=== PATIENT | female | born 1995 | race Caucasian/White ===

== ENCOUNTER → 2020-07-27 17:23 | Outpatient (BNVA) | payer SELFPAY | PROVIDERS: Family Provider Nurse Practitioner Family; PCP Nurse Practitioner Family; Visit Provider Family Medicine Adult Medicine | DX: R30.0 Dysuria (principal); R30.1 Vesical tenesmus | CPT/HCPCS: 81000 ==

== ENCOUNTER 2020-09-02 14:00 | Emergency (ER) | payer SELFPAY ==
[2020-09-02 14:38] VITALS: BP 114/73; PULSE 78; RESP 16; TEMP 36.9; O2SAT 98; BMI 25.0
--- NOTE | 2020-09-02 14:47 | XR_ITS ---
WS: [id number] Right knee, AP and lateral views, 09/02/2020 Clinical Data: injury Comparison: None. Findings: No fractures or dislocations are seen. The joint spaces are normal. The patella is intact. The soft t issues are unremarkable. XR/XR knee RT 1-2V 70601 Impression: Negative right knee.
--- NOTE | 2020-09-02 16:05 | ED_ITS ---
HPI - Extremity Problem General: Chief complaint: Extremity Injury, Lower Stated complaint: Right Knee Injury Time Seen by Provider: 09/02/20 14:48 Source: patient Mode of arrival: ambulatory Limitations: no limitations History of Present Illness: MD Complaint: joint pain Onset (ago): hour(s) (2) Pain Consistency: constant Location: right and knee Quality: aching and sharp Radiation: none Relieving factors: immobilization and elevation Exacerbating factors: range of motion Associated symptoms: Reports no associated symptoms; Deny chest pain, fever(s) or rash Review of Systems Const: Denies: fever(s), chills or body aches Card: Denies: chest pain, irregular heart rhythm, swelling of feet/ankles, lightheadedness, syncope or dyspnea on exertion Resp: Denies: dyspnea, productive cough, non-productive cough or wheezing GI: Denies: abdominal pain, nausea or vomiting : Denies: flank pain, difficulty voiding or dysuria Musc: Reports: joint pain Skin/Breast: Denies: rash Neuro: Denies: headache(s) or numbness in extremities Psych: Denies: anxiety, suicidal ideation or homicidal ideation PFS ED PFSH: Medical History Dysuria Endometriosis Painful bladder spasm Social History Smoking and tobacco status: current every day smoker cigarettes Packs smoked per day: 0.5 Alcohol intake: former Current occupational status: employed Physical Exam Const: COMMON NORMALS: no acute distress and no limitations Resp: COMMON NORMALS: normal respiratory effort, No retractions and clear to auscultation bilaterally AUSCULTATION: clear to auscultation bilaterally Cardio: COMMON NORMALS: regular rate and regular rhythm RATE: regular rate RHYTHM: regular rhythm GI: COMMON NORMALS: Normal to inspection, nondistended, normoactive bowel sounds present, Soft to palpation and non-tender PALPATION: Yes Soft to palpation : COMMON NORMALS: Yes no CVA tenderness BLADDER/KIDNEY EXAM: Yes no CVA tenderness Back/Pelvis: COMMON NORMALS: no CVA tenderness, thoracic and lumbar spine normal to inspection, no thoracic nor lumbar tenderness and thoraco-lumbar ROM normal Extremity: COMMON NORMALS: normal to inspection, full ROM, capillary refill normal, no joint enlargement, no clubbing, cyanosis or edema, no calf tenderness and no pedal edema RIGHT LOWER EXTREMITY: Yes knee joint Right knee: Yes inspection (Normal), Yes palpation (tender medial), Yes ROM (no instability) and Yes neurovascular exam (NVI) Course Vital Signs: Vital signs: Vital Signs Temperature 98.5 F 09/02/20 14:38 Pulse Rate 78 09/02/20 14:38 Respiratory Rate 16 09/02/20 14:38 Blood Pressure 114/73 09/02/20 14:38 Pulse Oximetry 98 09/02/20 14:38 MDM - Extremity (Nontraumatic) MDM Narrative: Medical decision making narrative: Pt is well appearing non toxic and in no acute distress. Pt is NVI distally. Pt is able to ambulate but does exhibit pain. Pt has no evidence of instability. xray does not reveal any fracture or dislocation. I will place patient in knee immobilizer and crutches and have follow up with PCP Discharge Plan Discharge Patient Disposition: Home Clinical Impression: Acute knee pain Qualifiers: Laterality: right Qualified Code(s): M25.561 - Pain in right knee Condition: Stable Prescriptions: No Action phenazopyridine [Pyridium] 200 mg tablet 200 mg PO TID Qty: 12 RF: 0 oxybutynin chloride 5 mg tablet 5 mg PO BID Qty: 10 RF: 0 Discharge Orders: Discharge Order (Routine); Ordered 09/02/20 Ordered By: Thu Evangelista Referrals: Brenda Koch FNP [Primary Care Provider] - Discharge Diet: Advance as tolerated Discharge Activity: Increase activity as tolerated and Use walker/crutches as instructed Activity Restrictions/Additional Instructions: Rest Ice Elevate Take over the counter Tylenol or Motrin per label directions Follow up with PCP if no improvement in 2 weeks Coding Level of Care Code 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
== END 2020-09-02 16:31 | disposition home or self-care (01) ==
PROVIDERS: Emergency Provider Registered Nurse; PCP Nurse Practitioner Family
DX: M25.561 Pain in right knee (principal); F17.210 Nicotine dependence, cigarettes, uncomplicated
CPT/HCPCS: 12345; 29530; 73560; 99281; 99283; E0114

== ENCOUNTER → 2020-09-10 13:55 | Outpatient (BNVA) | payer OTHER, SELFPAY | PROVIDERS: PCP Nurse Practitioner Family; Visit Provider Emergency Medicine | DX: Z20.828 Contact with and (suspected) exposure to other viral communicable diseases (principal); R06.2 Wheezing | CPT/HCPCS: 87400; 87635 ==

== ENCOUNTER 2020-09-13 08:33 | Emergency (ER) | payer SELFPAY ==
[2020-09-13 08:45] VITALS: BP 117/73; PULSE 91; RESP 16; TEMP 36.7; O2SAT 95; BMI 24.2
--- NOTE | 2020-09-13 08:54 | XR_ITS ---
WS: [id number] XR knee RT 3V* 47779 REASON FOR EXAM: fall, injury FINDINGS: The joint spaces of the right knee are well preserved. No fracture or other focal bony abnormality identified. No significant soft tissue abnormality. XR/XR knee RT 3V* [id number] IMPRESSION: No acute abnormality.
--- NOTE | 2020-09-13 08:54 | W.ED.EXTPRO ---
HPI - Extremity Problem General: Chief complaint: Extremity Problem,Nontraumatic Stated complaint: Pain in Right Knee Time Seen by Provider: 09/13/20 08:35 Source: patient Mode of arrival: ambulatory Limitations: no limitations History of Present Illness: HPI Narrative: Pleasant 24-year-old female patient presents to the emergency department with right knee pain. She reports recent evaluation in the emergency department 09/02/2020, right knee pain, prescribed crutches with knee immobilizer, states utilized DME, improvement of right knee pain. Reports 09/10/2020, was walking down the stairs when her right knee locked up, she sustained a twisting injury to the right knee sustaining a fall. She reports no other injuries with exception to increased right knee pain. She has not utilize crutches and has not utilize knee immobilizer since her fall. 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 MD Complaint: joint swelling (rt knee) and joint pain (rt knee) Onset (ago): week(s) (09/02/2020 - improving but knee lock up on 09/10/2020 sustaining a fall, twisting of the rt knee with worsening pain) Pain Consistency: intermittent Location: right and lower extremity Severity scale (1-10): 5 Quality: aching and dull Radiation: distal Relieving factors: immobilization, medication (Tylenol) and rest Exacerbating factors: range of motion, weight bearing and walking Associated symptoms: Reports no associated symptoms; Deny chest pain, fever(s) or rash Review of Systems General: Reports: 10 or more systems reviewed and unremarkable except in HPI and below Const: Denies: fever(s), chills or diaphoresis Eyes: Denies: blurry vision or eye redness ENMT: Denies: throat pain, dental pain or disequilibrium Card: Denies: chest pain, palpitations or irregular heart rhythm Resp: Denies: dyspnea, productive cough, non-productive cough or wheezing GI: Denies: abdominal pain, nausea or vomiting : Denies: difficulty voiding or dysuria Musc: Reports: joint pain (rt knee, anterior) and joint swelling (rt knee); Denies: neck pain or back pain Skin/Breast: Denies: rash or pruritus Neuro: Denies: headache(s), weakness in extremities or behavioral changes Psych: Denies: anxiety or depression Epi/Lymph: Denies: easy bruising PFSH ED PFSH: Medical History Dysuria Endometriosis Painful bladder spasm Social History (Updated 09/13/20 @ 08:50 by Silvano Guillen RN) Smoking and tobacco status: current every day smoker Alcohol intake: former Substance/Drug Use: never Current occupational status: employed Female Reproductive History: Date of last menstrual period: 08/23/20 Spontaneous abortions: No Physical Exam Const: COMMON NORMALS: no acute distress, patient oriented x3, healthy appearing and alert GENERAL APPEARANCE: cooperative, comfortable and well hydrated HENMT: COMMON NORMALS: normocephalic, Normal external nose present and moist oral mucous membranes HEAD & SCALP: normocephalic NOSE: Normal external nose present Eye: COMMON NORMALS: Equal, round and reactive pupils present and EOMs intact bilaterally GENERAL EYE: appearance normal, both eyes and all related structures PUPIL: Yes Equal, round and reactive pupils present Neck/C-Spine: COMMON NORMALS: full ROM and no lymphadenopathy GENERAL: Yes normal visual inspection and Yes trachea midline CERVICAL SPINE: Yes cervical ROM normal Lymph: LYMPHATIC: no lymphadenopathy noted Chest: COMMONS NORMALS: normal inspection of the chest Resp: COMMON NORMALS: normal respiratory effort and clear to auscultation bilaterally AUSCULTATION: clear to auscultation bilaterally Cardio: COMMON NORMALS: regular rhythm, S1 normal heart sound present, S2 normal heart sound present and Peripheral pulses 2+ throughout RHYTHM: regular rhythm HEART SOUNDS: S1 normal heart sound present and S2 normal heart sound present PERIPHERAL PULSES: Peripheral pulses 2+ throughout GI: COMMON NORMALS: Soft to palpation and non-tender INSPECTION: Yes normal to inspection PALPATION: Yes Soft to palpation : COMMON NORMALS: Yes no CVA tenderness BLADDER/KIDNEY EXAM: Yes no CVA tenderness Back/Pelvis: COMMON NORMALS: no CVA tenderness and thoracic and lumbar spine normal to inspection Extremity: COMMON NORMALS: normal to inspection, full ROM, capillary refill normal, no clubbing, cyanosis or edema, no calf tenderness and no pedal edema GENERAL: Yes normal exam except as noted RIGHT LOWER EXTREMITY: Yes knee joint Right knee: Yes inspection (edema anterior, no erythema, patellar pain with movement), Yes palpation (Effusion present, small, anterior), Yes ROM (Full flexion-extension with pain), Yes neurovascular exam (Distally intact) and Yes special tests Right knee special tests: Carrillo test: Positive, Anterior drawer sign: Positive, Valgus stress test: Negative and Varus stress test: Negative Neuro: COMMON NORMALS: patient oriented x3 and no focal motor deficits SENSORIUM/ORIENTATION: Yes alert Psych: COMMON NORMALS: mental status grossly normal, Normal thought process present and cooperative ACTIVITY/MOTOR BEHAVIOR: Yes appropriate eye contact THOUGHT PROCESS: Normal thought process present Skin: COMMON NORMALS: no rashes or lesions noted and turgor normal GENERAL SKIN EXAM: no rashes or lesions noted and turgor normal Course Vital Signs: Vital signs: Vital Signs Temperature 98.0 F 09/13/20 08:45 Pulse Rate 78 09/13/20 09:20 Respiratory Rate 16 09/13/20 08:45 Blood Pressure 117/73 09/13/20 08:45 Pulse Oximetry 95 09/13/20 08:45 MDM - Extremity (Nontraumatic) Imaging Data^: Xray Ortho: Radiologist's impression: [address] [address] XRay Report Signed Patient: Alexsandra Hinson Unit #: [id number] : 1995 Age/Sex: 24 / F ADM Date: 09/13/20 Loc: ER Room/Bed: Attending Dr: Ordering Provider/Ordering MD: Haley Braga Date of Service: 09/13/20 Procedure(s): XR knee RT 3V* [id number] Accession Number(s): [id number] Report Number: [id number] WS: [id number] XR knee RT 3V* [id number] REASON FOR EXAM: fall, injury FINDINGS: The joint spaces of the right knee are well preserved. No fracture or other focal bony abnormality identified. No significant soft tissue abnormality. XR/XR knee RT 3V* [id number] IMPRESSION: No acute abnormality. Dictated By: Azar Duarte Jr, MD Signed By: Azar Duarte Jr, MD Signed Date/Time: 09/13/20909 DD/ 8 Discharge Plan Discharge Patient Disposition: Home Clinical Impression: Right knee injury Qualifiers: Encounter type: initial encounter Qualified Code(s): S89.91XA - Unspecified injury of right lower leg, initial encounter Right knee sprain Qualifiers: Encounter type: initial encounter Involved ligament of knee: anterior cruciate ligament Qualified Code(s): S83.511A - Sprain of anterior cruciate ligament of right knee, initial encounter Condition: Stable Prescriptions: New IBU 800 mg tablet 800 mg PO TID PRN (Reason: pain) Qty: 30 RF: 0 No Action phenazopyridine [Pyridium] 200 mg tablet 200 mg PO TID Qty: 12 RF: 0 oxybutynin chloride 5 mg tablet 5 mg PO BID Qty: 10 RF: 0 albuterol sulfate 90 mcg/actuation HFA aerosol inhaler 2 puff inhalation Q6H PRN (Reason: shortness of breath or wheezing) Qty: 8.5 RF: 0 Discharge Orders: Discharge Order (Routine); Ordered 09/13/20 Ordered By: Haley Braga Referrals: Brenda Koch FNP [Primary Care Provider] - Discharge Diet: Usual diet Discharge Activity: Limit activity as instructed Patient Instructions: Knee Sprain (ED), Knee Pain (ED), Knee Immobilizer (ED) Activity Restrictions/Additional Instructions: Recommend to utilize knee immobilizer and crutches until knee pain has improved Recommend follow-up with your primary care physician next week, further testing may be needed Off work today and tomorrow, rest the knee, keep knee elevated until better Return to the emergency department if you develop increased knee pain, redness or swelling of the right lower extremity or new concerning symptoms May continue Tylenol as needed for pain Stand Alone Forms: Work/School Release Coding Level of Care Code 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
[2020-09-13 09:20] VITALS: PULSE 78
[2020-09-13 10:49] VITALS: BP 112/86; PULSE 75; RESP 18; O2SAT 98
== END 2020-09-13 08:52 | disposition home or self-care (01) ==
PROVIDERS: Emergency Provider Nurse Practitioner Family; PCP Nurse Practitioner Family
DX: S83.511A Sprain of anterior cruciate ligament of right knee, initial encounter (principal); F17.210 Nicotine dependence, cigarettes, uncomplicated; X50.1XXA Overexertion from prolonged static or awkward postures, initial encounter
CPT/HCPCS: 12345; 73562; 99281; 99282

== ENCOUNTER → 2021-10-25 10:34 | Outpatient (BNVA) | payer SELFPAY | PROVIDERS: PCP Nurse Practitioner Family; Visit Provider Family Medicine | DX: G44.209 Tension-type headache, unspecified, not intractable (principal); F17.290 Nicotine dependence, other tobacco product, uncomplicated; N63.10 Unspecified lump in the right breast, unspecified quadrant; R23.8 Other skin changes | CPT/HCPCS: 80053; 84439; 84443; 85025 ==

== ENCOUNTER → 2022-03-14 15:09 | Outpatient (BNVA) | payer SELFPAY | PROVIDERS: Visit Provider Emergency Medicine | DX: R63.4 Abnormal weight loss (principal); J32.9 Chronic sinusitis, unspecified; R23.8 Other skin changes | CPT/HCPCS: 84439; 84443; 84481; 85610 ==

== ENCOUNTER → 2022-12-21 15:24 | Outpatient (BNVA) | payer SELFPAY | PROVIDERS: Visit Provider Nurse Practitioner Family | DX: N39.0 Urinary tract infection, site not specified (principal) | CPT/HCPCS: 81000 ==

== ENCOUNTER 2023-03-16 15:48 | Emergency (ER) | payer SELFPAY ==
[2023-03-16 16:01] VITALS: BP 118/73; PULSE 92; RESP 16; TEMP 36.7; O2SAT 97; BMI 21.9
--- NOTE | 2023-03-16 17:30 | ED_ITS ---
HPI - GI Bleed General: Chief complaint: GI Bleed Stated complaint: hemoroid burst and is still bleeding Time Seen by Provider: 03/16/23 17:14 History of Present Illness: Alexsandra is a 27-year-old female that presents to the emergency department with complaints of rectal pain. Patient has a history of hemorrhoids and states that she has a couple that have flared up in have started bleeding. Patient reports a long history, greater than 2 years of chronic constipation and diarrhea with the development of hemorrhoids. She denies any fever chills chest pain shortness of breath abdominal pain, nausea vomiting. Denies any rectal trauma. Associated symptoms: Denies abdominal pain, chills, easy bruising, fever(s), headache(s), malaise, nausea, rash or vomiting Review of Systems General: Reports: 10 or more systems reviewed and unremarkable except in HPI and below Const: Denies: fever(s), chills, change in appetite, change in weight, fatigue or malaise Eyes: Denies: change in vision, eye discomfort, eye discharge or eye redness ENMT: Denies: throat pain, enlarged tonsils, odynophagia, hoarseness, ear or mastoid pain, ear discharge, change in hearing, tinnitus, nasal discharge, nasal congestion, post nasal drip or sinus pain Card: Denies: chest pain, palpitations, irregular heart rhythm, edema, dyspnea on exertion, orthopnea or leg pain with exertion Resp: Denies: dyspnea, productive cough, non-productive cough, wheezing, stridor or chest congestion GI: Denies: abdominal pain, nausea, vomiting, dysphagia, diarrhea, constipation, bloating, GI cramping or hematochezia : Denies: flank pain, difficulty voiding, dysuria, urinary frequency, urinary urgency, urinary hesitancy, oliguria or hematuria Musc: Denies: neck pain, back pain, extremity pain, joint pain, joint swelling, joint redness, joint warmth or muscle weakness Skin/Breast: Denies: rash, pruritus, erythema, photosensitivity or new lesions Neuro: Denies: headache(s), numbness in extremities, weakness in extremities, sensory changes, lack of coordination, difficulty walking, frequent falls, dizziness, confusion, Slurred speech present, difficulty communicating thoughts, seizure-like activity or involuntary movements Endo: Denies: polyuria, polydipsia or tired all the time Epi/Lymph: Denies: easy bruising or easy bleeding PFSH ED PFSH: Medical History Dysuria Endometriosis Painful bladder spasm Social History Smoking and tobacco status: current every day smoker (vape) e-cigarettes E- Cigarette Details: vaporizer device Alcohol intake: former Substance/Drug Use: never Current occupational status: employed Female Reproductive History: Spontaneous abortions: No Physical Exam Const: COMMON NORMALS: no acute distress, patient oriented x3 and alert GENERAL APPEARANCE: cooperative ORIENTATION/CONSCIOUSNESS: Yes awake, Yes oriented to person, Yes oriented to place and Yes oriented to time HENMT: COMMON NORMALS: normocephalic and atraumatic HEAD & SCALP: normocephalic and atraumatic FACE & SINUS: normal facial exam MOUTH: Normal oral and palatal mucosa present THROAT: posterior oropharynx normal Eye: COMMON NORMALS: Equal, round and reactive pupils present, EOMs intact bilaterally, conjunctivae normal and no scleral icterus GENERAL EYE: appearance normal, both eyes and all related structures ALIGNMENT: Yes alignment normal PERIORBITAL: periorbital findings normal CONJUNCTIVA: Yes conjunctivae normal PUPIL: Yes Equal, round and reactive pupils present Neck/C-Spine: COMMON NORMALS: full ROM GENERAL: Yes normal visual inspection Lymph: LYMPHATIC: no lymphadenopathy noted Chest: COMMONS NORMALS: normal inspection of the chest Breast/axilla inspection: Yes no chest deformity, asymmetry, normal contours, no nodules, masses, tenderness Resp: COMMON NORMALS: normal respiratory effort, No retractions, No use of accessory muscles and clear to auscultation bilaterally EFFORT & INSPECTION: Yes able to speak in complete sentences and Yes symmetric chest movement AUSCULTATION: clear to auscultation bilaterally Cardio: COMMON NORMALS: regular rate, regular rhythm and Peripheral pulses 2+ throughout RATE: regular rate RHYTHM: regular rhythm PERIPHERAL PULSES: Peripheral pulses 2+ throughout GI: COMMON NORMALS: Normal to inspection, nondistended, normoactive bowel sounds present, Soft to palpation, non-tender and No hepatosplenomegaly present INSPECTION: Yes normal to inspection AUSCULTATION: Yes normoactive bowel sounds PALPATION: Yes Soft to palpation and Yes No hepatosplenomegaly present RECTAL EXAM: External hemorrhoid(s) present Extremity: COMMON NORMALS: normal to inspection GENERAL: Yes normal exam except as noted Neuro: COMMON NORMALS: patient oriented x3 SENSORIUM/ORIENTATION: Yes alert, Yes oriented to person, Yes oriented to place and Yes oriented to time CRANIAL NERVES: Yes CN normal except as noted Psych: COMMON NORMALS: mental status grossly normal, Normal thought process present, cooperative, activity/motor behavior normal, denies homicidal ideation and denies suicidal ideation THOUGHT PROCESS: Normal thought process present Skin: COMMON NORMALS: no rashes or lesions noted, no wounds and turgor normal GENERAL SKIN EXAM: no rashes or lesions noted and turgor normal Course Vital Signs: Vital signs: Vital Signs Temperature 98.0 F 03/16/23 16:01 Pulse Rate 92 03/16/23 16:01 Respiratory Rate 16 03/16/23 16:01 Blood Pressure 118/73 03/16/23 16:01 Pulse Oximetry 97 03/16/23 16:01 Oxygen Delivery Me thod Room Air 03/16/23 16:01 MDM - GI Bleed Medical Decision Making Differential diagnosis includes hemorrhoids, fistulas, fissures Hemorrhoids were noted on physical exam. No active bleeding here. Patient was treated with Preparation H and discharged with a prescription Patient is to follow-up with primary care and should see a medical delivery driver if her symptoms are not managed. Questions sought and answered Discharge Plan Discharge Patient Disposition: Home Clinical Impression: Hemorrhoids Condition: Stable Prescriptions: New hydrocortisone [Preparation H Hydrocortisone] 1 % cream 1 applic topical BID Qty: 28.35 0RF Discharge Orders: Discharge ED (Routine); Ordered 03/16/23 Ordered By: Denisse Naylor Discharge Diet: Advance as tolerated Discharge Activity: Resume usual activity Patient Instructions: Hemorrhoids, Pain Management Activity Restrictions/Additional Instructions: These return to the emergency department for new concerning or worsening symptom Talk with your primary care doctor about your GI symptoms, hemorrhoids, bladder spasm Coding Level of Care Code ED Sap Functional Analyst for Gage Valdez
[2023-03-16] MEDS: phenyleph-mineral oil-petrolat Oint 28 gm 1 APPLIC PR (17:54)
--- NOTE | 2023-03-22 12:15 | DCPLANNER ---
managing manager called patient due to no primary care physician - no answer at this time.
== END 2023-03-16 17:59 | disposition home or self-care (01) ==
PROVIDERS: Emergency Provider Nurse Practitioner
DX: K64.9 Unspecified hemorrhoids (principal); F17.290 Nicotine dependence, other tobacco product, uncomplicated
CPT/HCPCS: 99283

== ENCOUNTER → 2023-07-05 07:36 | Outpatient (BNVA) | payer SELFPAY | PROVIDERS: Visit Provider Nurse Practitioner Family | DX: R30.0 Dysuria (principal) | CPT/HCPCS: 81000; 87086 ==

== ENCOUNTER → 2023-11-12 09:32 | Outpatient (BNVA) | payer SELFPAY | PROVIDERS: PCP Family Medicine; Visit Provider Family Medicine | DX: R63.5 Abnormal weight gain (principal); Z86.39 Personal history of other endocrine, nutritional and metabolic disease | CPT/HCPCS: 80053; 84439; 84443; 85025; 86376 ==

== ENCOUNTER → 2024-09-10 15:09 | Outpatient (BNVA) | payer SELFPAY | PROVIDERS: PCP Family Medicine; Visit Provider Family Medicine | DX: E06.3 Autoimmune thyroiditis (principal); Z86.39 Personal history of other endocrine, nutritional and metabolic disease | CPT/HCPCS: 80053; 84439; 84443; 85025; 86376 ==

== ENCOUNTER 2024-11-26 00:30 | Emergency (ER) | payer OTHER, MEDICAID, SELFPAY ==
[2024-11-26 00:40] VITALS: BP 115/73; PULSE 98; RESP 17; TEMP 36.6; O2SAT 98; BMI 28.1
--- NOTE | 2024-11-26 00:54 | ED_ITS ---
HPI - Ear Problem General: Chief complaint: Ear Stated complaint: Left Ear Bleeding\Side Mouth Pain Time Seen by Provider: 11/26/24 00:46 Source: patient Mode of arrival: ambulatory Limitations: no limitations History of Present Illness: Patient is a nice 29-year-old female presents to ED today complaining that her left ear canal is bleeding. Patient states over the past several days she has been having some left-sided jaw pain related to impacted wisdom teeth. She has not been noticing any ear pain. She did have a little bit of ear discharge/earwax the other day. States today she did put a small amount of toilet paper into her ear to try to help clean it. MD Complaint: ear discharge Location: left ear Severity: mild Relieving factors: nothing Exacerbating factors: nothing Associated symptoms: Denies fever(s) or tinnitus Treatment prior to arrival: none Related Data Previous Rx's ?Medication ?Instructions ?Recorded polyethylene glycol 3350 17 17 g PO DAILY #238 grams 1 11/10/23 gram/dose oral powder (Miralax) venlafaxine 37.5 mg 37.5 mg PO DAILY #30 caps capsule,extended release 24 hr (Effexor XR) ofloxacin 0.3 % ear drops 10 drp otic (ear) DAILY 7 da ys #5 11/26/24 mL Allergies Allergy/AdvReac Type Severity Reaction Status Date / Time coconut Allergy ALGY-Anaphy Verified 11/26/24 00:45 laxis Review of Systems Const: Denies: fever(s) ENMT: Reports: ear discharge; Denies: change in hearing, tinnitus or disequilibrium [facility] ED PFSH: Medical History Gibson's disease Anxiety Moderate major depression Endometriosis Painful bladder spasm Surgical History History of tonsillectomy Family History Mother Cancer Thyroid, throat. Grandmother Diabetes Type 2 Grandfather Cancer Throat. Father Hypertension Social History Smoking and tobacco/nicotine status: current every day tobacco/nicotine user (vapes) e-cigarettes E-Cigarette Details: vaporizer device Second hand smoke exposure: No Alcohol intake: former Substance/Drug Use: never Current occupational status: employed Female Reproductive History: Spontaneous abortions: No Physical Exam Const: COMMON NORMALS: no acute distress, average body habitus, no limitations, healthy appearing, alert and well nourished HENMT: COMMON NORMALS: TM's normal bilaterally FACE & SINUS: normal facial exam EXTERNAL EAR: Yes mastoids normal and Yes no periauricular adenopathy EXTERNAL AUDITORY CANAL: Abnormal EAC present EAC laterality: left (abraded canal with small amount of blood; TM normal) TYMPANIC MEMBRANE: TM's normal bilaterally TEETH & GINGIVA: Yes other (impacted wisdom teeth) Neck/C-Spine: GENERAL: Yes normal visual inspection Neuro: SENSORIUM/ORIENTATION: Yes alert Course Vital Signs: Vital signs: Vital Signs Temperature 97.9 F 11/26/24 00:40 Pulse Rate 98 11/26/24 00:40 Respiratory Rate 17 11/26/24 00:40 Blood Pressure 115/73 11/26/24 00:40 Pulse Oximetry 98 11/26/24 00:40 Oxygen Delivery Me thod Room Air 11/26/24 00:40 MDM - Ear Medical Decision Making Patient's TM looks normal. Appears she has abraded her left ear canal. Will place on prophylactic antibiotics. Recommend she follow-up with primary care if symptoms are not improving over the next few days. 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
[2024-11-26 01:14] VITALS: BP 113/73; PULSE 97; O2SAT 99
== END 2024-11-26 01:15 | disposition home or self-care (01) ==
PROVIDERS: Emergency Provider Physician Assistant
DX: S00.412A Abrasion of left ear, initial encounter (principal); X58.XXXA Exposure to other specified factors, initial encounter; F17.290 Nicotine dependence, other tobacco product, uncomplicated
CPT/HCPCS: 99283

== ENCOUNTER → 2025-05-07 14:04 | Outpatient (BNVA) | payer OTHER, MEDICAID, SELFPAY | PROVIDERS: PCP Family Medicine; Visit Provider Family Medicine | DX: E06.3 Autoimmune thyroiditis (principal) | CPT/HCPCS: 84439; 84443; 86376 ==

== ENCOUNTER 2025-05-14 15:10 | Outpatient (CLI) | payer OTHER, MEDICAID, SELFPAY ==
--- NOTE | 2025-05-14 15:00 | USR_ITS ---
PROCEDURE INFORMATION: Exam: US Soft Tissue Head and Neck, Thyroid Exam date and time: 05/14/2025 3:36 PM Age: 29 years old Clinical indication: Screening exam; Other; US thyroid TECHNIQUE: Imaging protocol: Real-time ultrasound scan of the neck with image documentation. Exam focused on the thyroid. COMPARISON: No relevant prior studies available. FINDINGS: Right thyroid lobe: No nodules. Mildly heterogeneous echotexture. Right thyroid lobe measures 1.8 x 1.8 x 5.2 cm (8.0 mL). Left thyroid lobe: No nodules. Mildly heterogeneous echotexture. Left thyroid lobe measures 1.7 x 1.5 x 5.2 cm (6.2 mL). Isthmus: No nodules. US/US thyroid [id number] IMPRESSION: 1. Mildly heterogeneous thyroid echotexture can be seen with thyroiditis. 2. No thyroid nodule.
== END 2025-05-14 15:11 | disposition home or self-care (01) ==
LOC: RAD 15:12
PROVIDERS: PCP Family Medicine; Visit Provider Family Medicine
DX: E04.9 Nontoxic goiter, unspecified (principal)
CPT/HCPCS: 76536

== ENCOUNTER 2025-07-19 16:04 | Emergency (ER) | payer MEDICAID, SELFPAY ==
[2025-07-19 16:13] VITALS: BP 128/84; PULSE 120; RESP 20; TEMP 36.8; O2SAT 97; BMI 26.6
--- NOTE | 2025-07-19 16:36 | XRR_ITS ---
PROCEDURE INFORMATION: Exam: XR Chest Exam date and time: 07/19/2025 4:43 PM Age: 29 years old Clinical indication: Cough and fever TECHNIQUE: Imaging protocol: Radiologic exam of the chest. Views: 1 view. COMPARISON: No relevant prior studies available. FINDINGS: Lungs: Unremarkable. No consolidation. Pleural spaces: Unremarkable. No pleural effusion. No pneumothorax. Heart/Mediastinum: Unremarkable. No cardiomegaly. Bones/joints: Unremarkable. XR/XR chest 1V portable [id number] IMPRESSION: No acute findings.
--- NOTE | 2025-07-19 17:09 | W.ED.ABDPA2 ---
HPI - Abdominal Pain General: Chief Complaint: Abdominal Pain Stated Complaint: High fever x3days and left side pain Source: patient Mode of arrival: ambulatory Limitations: no limitations History of Present Illness: Patient is a 29-year-old female with past medical history positive for Gibson's thyroiditis who presents the emergency department complaining of left-sided flank and abdominal pain for the past 4 days. Denies history of kidney infection or kidney stones. She is not having any dysuria or hematuria. States that the pain initially began in her back but has since radiated around to the left upper and lower abdomen, has been associated with a cough for a few days as well as some nausea and constipation. She is notably in pain at this time, tachycardic likely secondary to the pain and mildly diaphoretic. States that the pain is a sharp/stabbing sensation. She has not taken any medications other than [id number] cold and flu medication for her fevers, afebrile at this time. She is noting some chills. No diarrhea or vomiting reported. She is denying any history of previous abdominal surgeries. MD elicited complaint: abdominal pain and flank pain Onset (ago): day(s) (4) Pain Consistency: constant Location: L flank Severity: severe Quality: stabbing and sharp Radiation: LUQ and LLQ Exacerbating factors: nothing Relieving factors: nothing Associated Symptoms: Reports chills, constipation, fever(s) and nausea; Denies bloating, change in stool character, diarrhea, dysuria, hematochezia, hematuria and vomiting Related Data Previous Rx's ?Medication ?Instructions ?Recorded ketorolac 10 mg tablet 10 mg PO Q8H PRN pain 5 days #15 07/19/25 tabs ondansetron 4 mg disintegrating 4 mg PO TID PRN nausea and 07/19/25 tablet vomiting #30 tabs Allergies Allergy/AdvReac Type Severity Reaction Status Date / Time coconut Allergy ALGY-Anaphy Verified 07/19/25 16:19 laxis Review of Systems General: Reports: 10 or more systems reviewed and unremarkable except in HPI and below Const: Reports: fever(s) and chills; Denies: change in appetite or change in weight ENMT: Denies: throat pain or hoarseness Card: Denies: chest pain, palpitations or lightheadedness Resp: Denies: dyspnea, productive cough or wheezing GI: Reports: abdominal pain, nausea and constipation; Denies: vomiting, diarrhea, bloating, change in stool character or hematochezia : Reports: flank pain (left); Denies: difficulty voiding, dysuria, urinary frequency, urinary urgency or hematuria Musc: Denies: neck pain or back pain Skin/Breast: Denies: rash or new lesions Neuro: Denies: headache(s) or dizziness PFSH ED PFSH: Medical History Clostridium difficile infection Gibson's disease Anxiety Moderate major depression Painful bladder spasm Surgical History History of tonsillectomy Family History Mother Cancer Thyroid, throat. Grandmother Diabetes Type 2 Grandfather Cancer Throat. Father Hypertension Social History Smoking and tobacco/nicotine status: current every day tobacco/nicotine user (vapes) e-cigarettes E-Cigarette Details: vaporizer device Second hand smoke exposure: No Alcohol intake: former Substance/Drug Use: never Current occupational status: employed Female Reproductive History: Spontaneous abortions: No Physical Exam Const: COMMON NORMALS: average body habitus, patient oriented x3, no limitations, healthy appearing, alert and well nourished GENERAL APPEARANCE: cooperative ORIENTATION/CONSCIOUSNESS: Yes awake OTHER: nontoxic, in distress from pain Neck/C-Spine: COMMON NORMALS: full ROM, supple and no meningeal signs Resp: COMMON NORMALS: normal respiratory effort, No retractions, No use of accessory muscles and clear to auscultation bilaterally AUSCULTATION: clear to auscultation bilaterally, no crackles, no rales, no rhonchi and no wheezes Cardio: COMMON NORMALS: regular rhythm, No gallops present (Cardio), No clicks present (Cardio), No murmurs present (Cardio), No rub (Cardio) and Peripheral pulses 2+ throughout RATE: tachycardic RHYTHM: regular rhythm PERIPHERAL PULSES: Peripheral pulses 2+ throughout GI: COMMON NORMALS: Soft to palpation, No hepatosplenomegaly present and no masses AUSCULTATION: Yes normoactive bowel sounds PALPATION: Yes Soft to palpation, No Guarding due to palpation present (GI), No Rigid due to palpation and Yes No hepatosplenomegaly present RECTAL EXAM: deferred OTHER: Diffusely tender to palpation : BLADDER/KIDNEY EXAM: Yes CVA tenderness on the left Back/Pelvis: GENERAL BACK: Yes CVA tenderness Extremity: COMMON NORMALS: normal to inspection and full ROM Neuro: COMMON NORMALS: patient oriented x3, moves all extremities, no focal motor deficits and no sensory deficits noted SENSORIUM/ORIENTATION: Yes alert MENINGEAL SIGNS: Yes no meningeal signs Psych: COMMON NORMALS: mental status grossly normal, cooperative and speech normal SPEECH: Yes normal speech Skin: COMMON NORMALS: no rashes or lesions noted GENERAL SKIN EXAM: no rashes or lesions noted Course Vital Signs: Vital signs: Vital Signs Temperature 98.3 F 07/19/25 16:13 Pulse Rate 96 07/19/25 18:40 Respiratory Rate 20 H 07/19/25 16:13 Blood Pressure 115/64 07/19/25 18:40 Pulse Oximetry 96 07/19/25 18:40 Oxygen Delivery Me thod Room Air 07/19/25 18:40 MDM - Abdominal Pain Medical Decision Making Patient had presented with left flank pain, upper respiratory symptoms as well for the past 4 days. No reported sick contact exposure. No history of UTI or kidney infections. Diffuse abdominal tenderness to palpation on exam, she was uncomfortable appearing secondary to pain. However after IV Toradol notes that she has quite a bit of relief in her pain. Lab work showing mild leukopenia and she is positive for flu A. 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 She feels much better upon recheck, she is told to enact contagion precaution and treat conservatively with antiemetics and Toradol at home. Strict return precautions are given though she is stable for discharge at this time. Lab Data 07/19/25 17:36 07/19/25 17:36 Labs/Radiology: Radiology Impressions Abdomen/Pelvis CT 07/19/25 17:57 IMPRESSION: 1. Venous vascular engorgement along the margins of the uterus, [id number]-right. This appearance can sometimes be seen with pelvic vascular congestion syndrome. 2. Top-normal size of the spleen. No other left-sided abnormalities to explain patient's symptoms. Laboratory Results WBC 2.95 10^3/uL (3.29-11.43) L 07/19/25 17:36 RBC 4.01 10^6/uL (3.85-5.65) 07/19/25 17:36 Hgb 12.20 g/dL (11.27-16.99) 07/19/25 17:36 Hct 36.1 % (36-47) 07/19/25 17:36 MCV 90.0 fl (85-98) 07/19/25 17:36 MCH 30.4 pg (27-33) 07/19/25 17:36 MCHC 33.8 g/dL (30-55) 07/19/25 17:36 RDW 11.8 % (12.1-15.1) L 07/19/25 17:36 Plt Count 195 10^3/cmm (157-399) 07/19/25 17:36 MPV 10.1 fL (7.4-10.4) 07/19/25 17:36 Neut % (Auto) 55.3 % 07/19/25 17:36 Lymph % (Auto) 26.8 % 07/19/25 17:36 Mcminn % (Auto) 16.6 % 07/19/25 17:36 Eos % (Auto) 0.7 % 07/19/25 17:36 Baso % (Auto) 0.3 % 07/19/25 17:36 Neut # (Auto) 1.63 10^3/uL (1.8-7.7) L 07/19/25 17:36 Lymph # (Auto) 0.8 10^3/uL (0.8-4.8) 07/19/25 17:36 Mcminn # (Auto) 0.5 10^3/uL (0.2-0.9) 07/19/25 17:36 Eos # (Auto) 0.0 10^3/uL (0.0-0.8) 07/19/25 17:36 Baso # (Auto) 0.0 10^3/uL (0.0-0.1) 07/19/25 17:36 Nucleated RBC % (auto) 0 % 07/19/25 17:36 Nucleated RBCs # 0.0 /100WBC 07/19/25 17:36 Sodium 141 mmol/L (136-145) 07/19/25 17:36 Potassium 3.3 mmol/L (3.5-5.1) L 07/19/25 17:36 Chloride 104 mmol/L (98-107) 07/19/25 17:36 Carbon Dioxide 24 mmol/L (22-29) 07/19/25 17:36 Anion Gap 16.3 (5-19) 07/19/25 17:36 BUN 5 mg/dL (6-20) L 07/19/25 17:36 Creatinine 0.7 mg/dL (0.5-0.9) 07/19/25 17:36 GFR Calculation 99.6 mL/min (90-130) 07/19/25 17:36 Glucose 127 mg/dL (65-115) H 07/19/25 17:36 Calculated Osmolality 291 mOsm/kg (285-295) 07/19/25 17:36 Lactic Acid 1.1 mmol/L (0.5-2.2) 07/19/25 17:36 Calcium 8.6 mg/dL (8.5-10.5) 07/19/25 17:36 Total Bilirubin 0.2 mg/dL (0.15-1.2) 07/19/25 17:36 AST 28 U/L (0-32) 07/19/25 17:36 ALT 22 U/L (0-33) 07/19/25 17:36 Alkaline Phosphatase 86 U/L (35-105) 07/19/25 17:36 Total Protein 7.4 g/dL (6.6-8.7) 07/19/25 17:36 Albumin 3.9 g/dL (3.5-5.2) 07/19/25 17:36 Globulin 3.5 g/dL (1.3-4.6) 07/19/25 17:36 HCG, Qual Negative (Negative) 07/19/25 17:00 Urine Color Dark yellow (Yellow) A 07/19/25 17:00 Urine Appearance Clear (CLEAR) 07/19/25 17:00 Urine pH 6.0 (5-7) 07/19/25 17:00 Ur Specific [place] 1.021 (1.005-1.030) 07/19/25 17:00 Urine Protein Trace (Negative) A 07/19/25 17:00 Urine Glucose (UA) Negative (Normal) 07/19/25 17:00 Urine Ketones Trace (Negative) 07/19/25 17:00 Urine Blood Negative (Negative) 07/19/25 17:00 Urine Nitrate Negative (Negative) 07/19/25 17:00 Urine Bilirubin Negative (Negative) 07/19/25 17:00 Urine Urobilinogen 2.0 mg/dL (Negative) H 07/19/25 17:00 Ur Leukocyte Esterase Negative (Negative) 07/19/25 17:00 Urine RBC None /hpf (0-2) 07/19/25 17:00 Urine WBC 0-4 /hpf (0-5) H 07/19/25 17:00 Ur Squamous Epith Cells 5-10 /hpf (0-5) H 07/19/25 17:00 Amorphous Sediment Not Reportable 07/19/25 17:36 Urine Bacteria Trace /hpf (NONE) 07/19/25 17:00 Urine Mucus 1+ /hpf 07/19/25 17:00 Influenza A (PCR) Positive (Negative) 07/19/25 17:36 Influenza Type B (PCR) Negative (Negative) 07/19/25 17:36 RSV (PCR) Negative (Negative) 07/19/25 17:36 SARS-CoV-2 (PCR) Negative (Negative) 07/19/25 17:36 All radiology interpretation(s) finalized by discharge Discharge Plan Discharge Patient Disposition: Home Clinical Impression: Influenza A Condition: Stable Prescriptions: New ketorolac 10 mg tablet 10 mg PO Q8H PRN (Reason: pain) 5 Days Qty: 15 0RF ondansetron 4 mg tablet,disintegrating 4 mg PO TID PRN (Reason: nausea and vomiting) Qty: 30 0RF Discharge Orders: Discharge ED (Routine); Ordered 07/19/25 Ordered By: Kishore Ferrara Referrals: Lashay Stephens DO [Primary Care Provider, Family Practice] Patient Instructions: Patient Portal & Randal Instructions Activity Restrictions/Additional Instructions: Influenza A Discharge Instructions Diagnosis: Laboratory-confirmed influenza A. Antiemetic Therapy: - Ondansetron is prescribed for nausea and vomiting associated with influenza. - Adult dosin mg orally every 8 hours as needed for nausea/vomiting. Maximum single dose is 8 mg; do not exceed 24 mg in 24 hours. For severe hepatic impairment, do not exceed 8 mg daily. - Casting House Laborer regarding potential adverse effects: constipation, headache, and rare hypersensitivity reactions (including anaphylaxis and bronchospasm). - Warn about rare but serious risks: QT interval prolongation and Torsade de Pointes. Avoid in patients with congenital long QT syndrome or those on other QT-prolonging agents. Monitor for symptoms such as palpitations, syncope, or lightheadedness. - Advise to report any signs of serotonin syndrome (mental status changes, autonomic instability, neuromuscular symptoms) if taking serotonergic medications. - Ondansetron may mask symptoms of ileus or bowel obstruction; monitor for abdominal distension or decreased bowel activity. Pain Management: - Ketorolac is indicated for short-term management of moderate pain. - Adult dosin mg orally every 4?6 hours as needed, not to exceed 40 mg/day. Limit duration to <= days due to risk of gastrointestinal, renal, and cardiovascular adverse effects. - Contraindications: history of peptic ulcer disease, GI bleeding, renal impairment, or concurrent use of other NSAIDs. - Casting House Laborer on common adverse effects: dyspepsia, GI upset, headache, and risk of bleeding. Supportive Care: - Encourage adequate hydration, rest, and antipyretics (acetaminophen preferred if additional analgesia is needed). - Monitor for worsening symptoms: persistent high fever, shortness of breath, chest pain, confusion, or inability to tolerate oral intake. - Advise prompt medical attention for signs of complications (e.g., secondary bacterial pneumonia, severe dehydration). Follow-Up: - Routine follow-up is not required for uncomplicated influenza. Advise return for persistent or worsening symptoms, or if unable to tolerate oral medications. Patient Counseling Points: - Take all medications as prescribed and report any adverse effects. - Avoid close contact with others until fever resolves for at least 24 hours (without antipyretics) to reduce transmission risk. - Practice good hand hygiene and respiratory etiquette. References: IDSA Clinical Practice Guidelines for Influenza; FDA labeling for ondansetron. Print Language: Kittitian Coding Level of Care Code ED Wood Preparation Supervisor for Gage Valdez
[2025-07-19 17:30] LABS: HCG Qualitative Urine. Negative (Negative)
[2025-07-19 17:55] LABS: Hematocrit 36.1 % (36-47); Hemoglobin 12.20 g/dL (11.27-16.99); Mean Corpuscular HGB Conc 33.8 g/dL (30-55); Mean Corpuscular Hemoglobin 30.4 pg (27-33); Mean Corpuscular Volume 90.0 fl (85-98); Nucleated Red Blood Cells % 0 %; Platelet Count 195 10^3/cmm (157-399); Red Blood Count 4.01 10^6/uL (3.85-5.65); White Blood Count 2.95 10^3/uL (3.29-11.43)
--- NOTE | 2025-07-19 17:57 | CTR_ITS ---
PROCEDURE INFORMATION: Exam: CT Abdomen And Pelvis With Contrast Exam date and time: 07/19/2025 6:04 PM Age: 29 years old Clinical indication: Abdominal pain; Generalized; Additional info: Left abd pain TECHNIQUE: Imaging protocol: Computed tomography of the abdomen and pelvis with contrast. Radiation optimization: All CT scans at this facility use at least one of these dose optimization techniques: automated exposure control; mA and/or kV adjustment per patient size (includes targeted exams where dose is matched to clinical indication); or iterative reconstruction. Contrast material: OMNIPAQUE 350; Contrast volume: 100 ml; Contrast route: INTRAVENOUS (IV); COMPARISON: US pelv w/transvag [id number] 07/19/2019 1:27 AM RADIATION DOSE METRICS: Total DLP (mGy-cm): 574.21 FINDINGS: Liver: No discrete liver lesions are apparent. Smooth hepatic contour. Gallbladder and biliary ducts: Gallbladder is completely contracted, limiting its evaluation. Pancreas: No evidence of pancreatitis. No ductal dilation. Spleen: Spleen is top-normal size. Adrenal glands: Adrenal glands are within expected limits. Kidneys and ureters: No renal or ureteral calculi are identified. No hydronephrosis. Stomach and bowel: Small bowel is normal caliber. No obstruction. Large bowel within normal limits. No inflammatory wall thickening or abnormal bowel dilatation. Appendix: No evidence of appendicitis. Intraperitoneal space: No free air. No significant fluid collection. Vasculature: Abdominal aorta is normal caliber with no aneurysm. Lymph nodes: No pathologically enlarged lymph nodes by CT size criteria. Urinary bladder: Unremarkable as visualized. Reproductive: Mild venous vascular engorgement along the margins of the uterus, greater on the left. Uterus itself is normal in appearance. Bones/joints: No acute osseous abnormalities. Soft tissues: Unremarkable. CT/CT abdomen pelvis w con* [id number] IMPRESSION: 1. Venous vascular engorgement along the margins of the uterus, [id number]-right. This appearance can sometimes be seen with pelvic vascular congestion syndrome. 2. Top-normal size of the spleen. No other left-sided abnormalities to explain patient's symptoms.
[2025-07-19 18:06] LABS: Alanine Aminotransferase 22 U/L (0-33); Albumin Level 3.9 g/dL (3.5-5.2); Alkaline Phosphatase 86 U/L (35-105); Anion Gap 16.3 (5-19); Aspartate Amino Transferase 28 U/L (0-32); Blood Urea Nitrogen 5 mg/dL (6-20); Calcium 8.6 mg/dL (8.5-10.5); Carbon Dioxide 24 mmol/L (22-29); Chloride 104 mmol/L (98-107); Creatinine Clr Calc Pharmacy 128.0750; Globulin 3.5 g/dL (1.3-4.6); Glucose 127 mg/dL (65-115); Osmolality Calculated 291 mOsm/kg (285-295); Potassium 3.3 mmol/L (3.5-5.1); Sodium 141 mmol/L (136-145); Total Protein 7.4 g/dL (6.6-8.7)
[2025-07-19] MEDS: iohexol 350 mg/mL 500 mL Btl (per mL) IV (18:07)
[2025-07-19 18:24] LABS: Glucose Urine UA Negative (Normal); Nitrate Urine Negative (Negative); Specific Gravity, Urine 1.021 (1.005-1.030)
[2025-07-19 18:29] LABS: Respiratory Syncytial Virus Ce NEGATIVE (Negative); SARS-CoV-2 PCR NEGATIVE (Negative)
[2025-07-19 18:35] LABS: Lactic Sepsis W/Reflex 1.1 mmol/L (0.5-2.2)
[2025-07-19 18:38] LABS: Add Urine Microscopic? YES; UA Manual Slide Review YES
[2025-07-19 18:40] VITALS: BP 115/64; PULSE 96; O2SAT 96
[2025-07-19 19:24] VITALS: BP 110/67; PULSE 83; O2SAT 96
== END 2025-07-19 19:26 | disposition home or self-care (01) ==
PROVIDERS: Emergency Provider Physician Assistant; PCP Family Medicine
DX: J10.1 Influenza due to other identified influenza virus with other respiratory manifestations (principal); Z11.52 Encounter for screening for COVID-19; F17.290 Nicotine dependence, other tobacco product, uncomplicated
CPT/HCPCS: 71045; 74177; 80053; 81001; 81025; 83605; 85025; 87637; 96374; 99285; J1885